=== PATIENT | female | born 1990 | race African-American/Black ===

== ENCOUNTER 2016-08-12 16:23 | Emergency (ER) | payer BC, OTHER ==
[~2016-08-12] VITALS: Ht 160 cm; Wt 50.8 kg
[2016-08-12] MEDS ORDERED: ONDANSETRON 4 MG TAB.RAPDIS SL ONE (17:00)
[2016-08-12] MEDS ORDERED: HYDROCODONE/APAP 5/325MG 1 EACH TABLET PO ONE (17:00)
[2016-08-12] MEDS ORDERED: HYDROCODONE/APAP 5/325MG 1 EACH TABLET ONE (17:02)
[2016-08-12] MEDS ORDERED: ONDANSETRON 4 MG TAB.RAPDIS ONE (17:02)
[2016-08-12 18:35] VITALS: BP 128/68
== END 2016-08-12 18:36 | disposition home or self-care (01) ==
LOC: ER 16:26
DX: M25.532 Pain in left wrist (principal); C95.90 Leukemia, unspecified not having achieved remission; M87.9 Osteonecrosis, unspecified; Z90.89 Acquired absence of other organs; Z94.81 Bone marrow transplant status
CPT/HCPCS: 73110; 99284; A4606; Q0162; Z7610

== ENCOUNTER 2020-05-15 19:42 | Emergency (ER) | payer OTHER ==
[~2020-05-15] VITALS: Ht 157.5 cm; Wt 52.6 kg
--- NOTE | 2020-05-15 20:06 | NUR ---
PT AAOX4. AMBULATORY WITH STEADY GAIT. BIBSELF C/O R SIDED CP RADIATING TO R ARM X3 DAYS. AWAITING MD FOR EVAL AND ORDERS.
--- NOTE | 2020-05-15 20:15 | NUR ---
URINE COLLECTED, SENT TO LAB.
--- NOTE | 2020-05-15 20:30 | NUR ---
LINE ESTABLISHED LAC 18G, BLOOD DRAW, SENT TO LAB. AWAITING OTHER ORDERS.
[2020-05-15 20:53] LABS: BASOPHILS % (AUTO) 0.5 % (0.0-2.0); EOSINOPHILS % (AUTO) 0.1 % (0.0-6.0); HEMATOCRIT 37 % (33-45); HEMOGLOBIN 12.5 g/dL (11.5-14.8); LYMPHOCYTES # (AUTO) 1.7 /CMM (0.8-4.8); LYMPHOCYTES % (AUTO) 27.8 % (20.0-44.0); MEAN CORPUSCULAR HGB CONC 34 g/dl (31.0-36.0); MEAN CORPUSCULAR VOLUME 90 fL (82-100); MONOCYTES # (AUTO) 0.4 /CMM (0.1-1.30); MONOCYTES % (AUTO) 6.7 % (2.0-12.0); NEUTROPHILS # (AUTO) 3.9 /CMM (1.8-8.9); NEUTROPHILS % (AUTO) 64.9 % (43.0-81.0); PLATELET COUNT (AUTO) 121 /CMM (150-450); RED BLOOD CELL COUNT(AUTO) 4.13 MIL/uL (4.0-5.2)
[2020-05-15 21:07] LABS: CALCIUM, SERUM 9.3 mg/dL (8.5-10.1); CARBON DIOXIDE 29 mmol/L (21-32); CHLORIDE 102 mmol/L (98-107); CREATININE 0.7 mg/dL (0.6-1.3); GLUCOSE 101 mg/dL (74-106); POTASSIUM 3.9 mmol/L (3.5-5.1); SODIUM SERUM 139 mmol/L (136-145); UREA NITROGEN, BLOOD 19 mg/dL (7-18)
[2020-05-15] MEDS ORDERED: IV NS 0.9% 250 ML IV ONE (21:41)
[2020-05-15] MEDS ORDERED: IOHEXOL-350 100 ML VIAL IV ONE (21:41)
[2020-05-15] MEDS ORDERED: IBUP-1953 PO (22:54)
--- NOTE | 2020-05-16 00:02 | NUR ---
Patient discharged to home in stable condition. Written and verbal after care instructions given. Patient verbalizes understanding of instruction and RX.
--- NOTE | 2020-05-16 00:02 | NUR ---
IV removed. Catheter intact and site benign. Pressure and 4x4 applied to site. No bleeding noted.
[2020-05-16 00:04] VITALS: BP 122/71
== END 2020-05-16 00:04 | disposition home or self-care (01) ==
LOC: ER 19:45
DX: R07.89 Other chest pain (principal); R55 Syncope and collapse; R51.9 Headache, unspecified; Z85.6 Personal history of leukemia; Z90.89 Acquired absence of other organs; Z98.890 Other specified postprocedural states; Z86.73 Personal history of transient ischemic attack (TIA), and cerebral infarction without residual deficits
CPT/HCPCS: 36415; 70450; 71045; 71275; 80048; 84484 ×2; 84702; 85025; 85378; 93005; 99285; J7050; Q9967

== ENCOUNTER 2022-06-29 21:07 | Emergency (ER) | payer BC, OTHER ==
[~2022-06-29 21:07] MED LIST: IBUP-1953 PO
--- NOTE | 2022-06-29 23:50 | NUR ---
CALLED FOR TRIAGE. NO ANSWER
--- NOTE | 2022-06-30 00:18 | NUR ---
CALLED FOR TRIAGE. NO ANSWER
== END 2022-06-30 00:40 | disposition left against medical advice (07) ==
LOC: ER 21:11
DX: Z53.21 Procedure and treatment not carried out due to patient leaving prior to being seen by health care provider (principal)